=== PATIENT | female | born 1960 | race African-American/Black ===

== ENCOUNTER → 2018-04-14 | Outpatient (CLI) | payer BC ==
--- NOTE | 2018-04-15 11:49 | Diagnostic Imaging Report ---
Indication: 57-year-old female with new right sensorineural hearing loss and vertigo. Technique: The region of the internal auditory canals was imaged in a 1.5 Sofia magnet. Sequences obtained include axial and coronal pre and post gadolinium T1-weighted images, axial T2 fast spin-echo fat saturation, axial 3-D fiesta, sagittal T1 fast spin-echo. Comparison: None The 7th and 8th cranial nerve complexes are demonstrated as they exit the brainstem. Within the cistern there is no cerebellopontine angle mass. There is no intracanalicular mass or abnormal enhancement. No obvious abnormalities of the inner ear identified. Basilar artery is unremarkable as visualized. Visualized brain parenchyma appears unremarkable. IMPRESSION: Negative MRI of the IACs
== END | disposition home or self-care (01) ==
LOC: MRI 14:54
DX: H91.91 Unspecified hearing loss, right ear (principal); H90.41 Sensorineural hearing loss, unilateral, right ear, with unrestricted hearing on the contralateral side; R42 Dizziness and giddiness; H93.11 Tinnitus, right ear
CPT/HCPCS: 70553; A9585